=== PATIENT | male | born 1940 | race Caucasian/White ===

== ENCOUNTER 2016-03-16 09:16 | Inpatient (IN) | payer OTHER ==
[~2016-03-16] VITALS: Ht 177.8 cm; Wt 89.0 kg
--- NOTE | ~2016-03-16 | EKG ---
[address] [address] ELECTROCARDIOGRAM REPORT Name: MARIELLA FAY Room #: 212-[facility]#: [id number] Admission: 03/16/16 Attend Phys: Hernan Swanson MD Discharge: Date of : 42 Report #: [id number] THIS REPORT FOR: //name// [facility] Test Date: 2016-03-17 Test Time: 06:46:20 Pat Name: MARIELLA FAY Department: Room: 212 Gender: M Unscrambler: brittany : 1940 Requested By: Angel Pritchett Order Number: [id number] MD: John Louis Measurements Intervals [place] Rate: 76 P: 55 IL: 148 QRS: 72 QRSD: 95 T: 59 QT: 395 QTc: 445 Interpretive Statements Sinus rhythm Low voltage, extremity leads Compared to ECG 03/16/2016 12:58:11 No significant changes Electronically Signed On 03-17-2016 8:29:40 ORDERING BOX OPERATOR by John Louis [email or web address] <ELECTRONICALLY SIGNED> By: John Louis MD 03/17/16 0829 5 5 MD ROHAN Ortiz
--- NOTE | ~2016-03-16 | 2DMMODE ---
[facility] [place] [place] [address] 2 D/M-MODE ECHOCARDIOGRAM Name: NYAMARIELLA C Room #: 212-[facility] .R.#: [id number] Admission: 03/17/16 Attend Phys: Jarad Franco Discharge: Date of : 42 Date of Service: 03/17/16 1225 Report #: [id number] THIS REPORT FOR: //name// Transthoracic Echocardiography Ordering physician: Angel Pritchett M.D., F.A.C.C. Referring physician: Angel Pritchett M.D., F.A.C.C. Efficiency Miner Blasting: Lisa Giraldo Indications/History: Aortic stenosis. Hx: COPD BP: 107 / HR: 68bpm Height: 70in Weight: 196.6lb 72 Study data: M-mode, complete 2D, complete spectral Doppler, and color Doppler. Location: Echo laboratory. Routine. Image quality was adequate. 2D measurements Normal Normal LVID ED 42.3mm 36-57 IVS ED 9.5mm 6-11 LVID ES 30.5mm 23-40 LVPW ED 9.6mm 6-11 LA volume index 17ml/m2 16-28 AoRoot diam ED 37mm 21-37 LVOT diameter 21mm 18-23 Findings: Left ventricle: The cavity size was normal. Wall thickness was normal. Systolic function was normal. The estimated ejection fraction was in the range of 50% to 55%. Wall motion was normal. Right ventricle: The cavity size was normal. Systolic function was normal. Right atrium: The atrium was normal in size. Left atrium: The atrium was normal in size. Volume index: 17ml/m2 (S). Aortic valve: Mildly thickened leaflets. Doppler: There was no stenosis. No regurgitation. Peak velocity: 151.7cm/s (S). Mitral valve: Structurally normal valve. Doppler: [facility] [address] [place] [address] 2 D/M-MODE ECHOCARDIOGRAM Name: MARIELLA FAY Room #: 212-P [facility] M.R.#: [id number] Admission: 03/17/16 Attend Phys: Jarad Noah Franco Discharge: Date of : 42 Date of Service: 03/17/16 1225 Report #: [id number] There was no evidence for stenosis. No regurgitation. Peak E-wave velocity: 71cm/s. Peak gradient: 2mm Hg (D). Peak A-wave velocity: 81.7cm/s. Tricuspid valve: Structurally normal valve. Doppler: There was no evidence for stenosis. Mild regurgitation. Regurgitant peak velocity: 275.9cm/s. Peak RV-RA gradient: 30mm Hg (S). Pulmonic valve: Structurally normal valve. Doppler: There was no evidence for stenosis. Trivial regurgitation. Pericardium: There was no pericardial effusion. Aorta: Aortic root: The aortic root was normal in size. Pulmonary artery: Systolic pressure was estimated to be 35mm Hg. Diastolic function: Doppler parameters are consistent with abnormal left ventricular relaxation (grade 1 diastolic dysfunction). Systemic veins: Inferior vena cava: The vessel was normal in size; the respirophasic diameter changes were in the normal range (= 50%). Conclusions 1. Left ventricle: Systolic function was normal. The estimated ejection fraction was in the range of 50% to 55%. Wall motion was normal. Doppler parameters are consistent with abnormal left ventricular relaxation (grade 1 diastolic dysfunction). 2. Aortic valve: Mildly thickened leaflets. There was no stenosis. No regurgitation. 3. Mitral valve: Structurally normal valve. No regurgitation. 4. Pericardium, extracardiac: There was no pericardial effusion. 5. Pulmonary arteries: Systolic pressure was estimated to be 35mm Hg. <ELECTRONICALLY SIGNED> By: Angel Pritchett MD, [facility] 03/17/16 1317 1225 16 Angel Pritchett MD, [facility] /svetlana
--- NOTE | ~2016-03-16 | EKG ---
[address] [address] ELECTROCARDIOGRAM REPORT Name: MARIELLA FAY Room #: 212-[facility]#: [id number] Admission: 03/16/16 Attend Phys: Hernan Swanson MD Discharge: Date of : 42 Report #: [id number] THIS REPORT FOR: //name// [facility] Test Date: 2016-03-16 Test Time: 12:58:11 Pat Name: MARIELLA FAY Department: Room: 212 Gender: M Director Of Strategy & Mobile: brittany : 1940 Requested By: Brenda Llanos Order Number: [id number] MD: John Louis Measurements Intervals [place] Rate: 87 P: 70 MD: 146 QRS: 63 QRSD: 90 T: 55 QT: 358 QTc: 431 Interpretive Statements Sinus rhythm Borderline low voltage, extremity leads No previous ECG available for comparison Electronically Signed On 03-16-2016 15:50:17 SURVEYOR GEODETIC by John Louis [email or web address] <ELECTRONICALLY SIGNED> By: John Louis MD 03/16/16 1550 1258 1258 John Louis MD /MARISEL
--- NOTE | ~2016-03-16 | HC ---
[facility] [place] [place] [address] CONSULTATION Name: MARIELLA FAY Room #: 212-P [facility] IN ..#: [id number] Admission: 03/17/16 Attend Phys: Jarad Villa Discharge: 03/18/16 Date of : 42 Report #: [id number] THIS REPORT FOR: //name// CC: FAM unknown Hernanbrittnee Swanson REASON FOR CONSULTATION: Chest pain, myocardial infarction. HISTORY OF PRESENT ILLNESS: The patient is a 75-year-old gentleman with significant chronic obstructive pulmonary disease. History is otherwise fairly limited. Yesterday, he reports development of midsternal chest tightness. This was a pressure-like feeling radiating up into his neck and between his shoulder blades. He went to a clinic in [place], who intermediately called 911 and transported him to [facility]. There he was admitted overnight and troponin levels were mildly elevated at 0.96. He does have a history of remote angiography about 5 years ago at which time mild plaquing was identified. He has never had pain similar to this. He denies heart failure symptoms including orthopnea, paroxysmal nocturnal dyspnea, or lower extremity edema. No history of near syncope or syncope. ALLERGIES: He is allergic to KEFLEX. MEDICATIONS: Include theophylline 300 mg twice daily, albuterol, Crestor 10 mg daily, ProAir, Singulair. PAST MEDICAL HISTORY: Medical records have been reviewed and include a history of COPD, pneumonia, bilateral cataract excision, skin cancer excision. SOCIAL HISTORY: He smoked 2 packages a day for many years, but quit over 30 years ago. FAMILY HISTORY: Unremarkable for premature coronary disease. REVIEW OF SYSTEMS: All systems negative except as that noted above. PHYSICAL EXAMINATION: GENERAL: A pleasant gentleman who is in no distress. VITAL SIGNS: Blood pressure is 140/90, heart rate of 84 and regular. He is afebrile. HEENT: There are neither xanthelasma, subcutaneous xanthomata, oral mucosal or digital cyanosis or kyphoscoliosis present. CHEST: Reveals a few bibasilar crackles. CARDIOVASCULAR: Regular rate and rhythm with a normal S1, S2. No murmurs, gallops or rubs. ABDOMEN: Soft and nontender. EXTREMITIES: Without cyanosis, clubbing or edema. Radial pulses are 2+. NEUROLOGIC: He is alert with a nonfocal exam. [facility] [address] [place] [address] CONSULTATION Name: MARIELLA FAY Reinaldo Room #: 212-[facility] IN ..#: [id number] Admission: 03/17/16 Attend Phys: Fammarleen Noah Joaneb Discharge: 03/18/16 Date of : 42 Report #: [id number] LABORATORY DATA: Glucose 96, creatinine 1.4. Sodium 143, potassium 4.4, troponin 4.1, WBC 7.6, hemoglobin 15, hematocrit 46, platelet count 206. EKG, sinus rhythm, normal tracing. IMPRESSION: 1. Non-Q wave myocardial infarction. 2. Chronic obstructive pulmonary disease. 3. Chronic kidney disease. 4. Dyslipidemia. 5. Hypertension. RECOMMENDATIONS: 1. Continue therapy with heparin, nitrates, addition of beta blockade. 2. Coronary angiography. I have outlined the angiographic procedure in detail including its associated risks. At this point, I am going to withhold JANENE inhibitor therapy given his mild renal insufficiency in anticipation of a contrast load. After a thorough discussion of the angiographic procedure, its risks, and alternatives and after having answered his questions in detail, he is agreeable to proceeding. Further thoughts will be forthcoming based on this angiographic procedure. Thank you for asking me to participate in his care. <ELECTRONICALLY SIGNED> By: Angel Pritchett MD, [facility] 03/20/16 0825 1613 0153 Angel Pritchett MD, FACC /nt
--- NOTE | ~2016-03-16 | CATHLAB ---
[address] [place] [address] INVASIVE PROCEDURE REPORT Name: MARIELLA FAY Room #: 212-P [facility]#: [id number] Admission: 03/17/16 Attend Phys: Jarad Franco Discharge: 03/18/16 Date of : 42 Date of Service: 03/17/16 0859 Report #: [id number] THIS REPORT FOR: //name// CC: EDUARDO Swanson INDICATIONS: Non-Q-wave myocardial infarction. PROCEDURE IN DETAIL: The potential benefits and risks of the procedure were discussed at length with the patient who understood. Full written and informed consent was obtained. The patient was brought into the catheterization suite where his right groin was prepped and draped in a sterile fashion. He was sedated with intravenous Versed. 1% Xylocaine was used as local anesthetic. A 6-Somali sheath was placed in the right femoral artery by the modified Seldinger technique. Left heart catheterization was performed with a 6-Somali angled pigtail catheter. A single plain ventriculogram was performed in the SIDHU view. Pullback gradients were measured across the aortic valve. Selective coronary angiography was performed with a 6-Somali left and right 4 cm Krishna coronary catheter. All diagnostic catheters were removed. Hand injection was performed through the right groin sheath with placement of the Mynx device upon removal of the sheath. The patient remained in excellent condition at the conclusion of the procedure with good right groin hemostasis and intact distal pulses. RESULTS: LEFT HEART HEMODYNAMICS: 1. Left ventricular systolic pressure of 110. 2. Left ventricular end diastolic pressure of 14. 3. Aortic valve appeared to be 15-20 mm pullback gradient across the aortic valve. Central aortic pressure of 90/60. ANGIOGRAPHY: LEFT VENTRICULOGRAM: Ventriculography demonstrated normal global and regional left ventricular systolic function, mitral regurgitation was absent. Ejection fraction was estimated at 65%. SELECTIVE CORONARY ANGIOGRAPHY: 1. LEFT MAIN: Left main was normal. 2. LEFT ANTERIOR DESCENDING: Left anterior descending was moderately calcified proximally. There was smooth 40% to at most 50% proximal LAD plaque. There was a single moderate size anterolateral branch, which exhibited mild plaquing. 3. The circumflex was moderate in size and nondominant. Proximal circumflex exhibited a 40-50% stenosis. The circumflex then gave rise to a single marginal branch, which exhibited mild plaquing. 4. THE RIGHT CORONARY: The right coronary was dominant and quite large. There was scattered 20-30% proximal plaquing. The distal right coronary exhibited 20-30% plaquing, posterior descending and a large posterolateral branch exhibited mild plaquing. [address] [place] [address] INVASIVE PROCEDURE REPORT Name: MARIELLA FAY Room #: 212-P [facility] IN ..#: [id number] Admission: 03/17/16 Attend Phys: Jarad Franco Discharge: 03/18/16 Date of : 42 Date of Service: 03/17/16 0859 Report #: [id number] SUMMARY: 1. Normal global and regional left ventricular systolic function, mild to moderate aortic stenosis with suggestive correlation with echocardiography is recommended. 2. Normal left main. 3. Mild to moderate nonocclusive coronary artery disease. Based on this angiographic study, continued pharmacologic therapy and aggressive risk factor modification is recommended. <ELECTRONICALLY SIGNED> By: Angel Pritchett MD, [facility] 03/23/16 0858 0859 0935 Angel Pritchett MD, FAC /nt
--- NOTE | ~2016-03-16 | EKG ---
[address] [address] ELECTROCARDIOGRAM REPORT Name: MARIELLA FAY Room #: 212-[facility]#: [id number] Admission: 03/16/16 Attend Phys: Hernan Swanson MD Discharge: Date of : 42 Report #: [id number] THIS REPORT FOR: //name// [facility] Test Date: 2016-03-16 Test Time: 16:55:05 Pat Name: MARIELLA FAY Department: Room: 212 Gender: M Prototype Carpenter: Sharon WARD : 1940 Requested By: Angel Pritchett Order Number: [id number] MD: John Louis Measurements Intervals [place] Rate: 84 P: 54 VT: 148 QRS: 64 QRSD: 97 T: 52 QT: 386 QTc: 457 Interpretive Statements Sinus rhythm Borderline low voltage, extremity leads Compared to ECG 03/16/2016 12:58:11 No significant changes Electronically Signed On 03-17-2016 8:26:16 ART HISTORY INSTRUCTOR by John Louis [email or web address] <ELECTRONICALLY SIGNED> By: John Louis MD 03/17/16 0826 1655 165 John Louis MD /MARISEL
[2016-03-16 11:19] VITALS: BP 147/100
[2016-03-16] MEDS ORDERED: THEO-24300 MG PO (11:27)
[2016-03-16] MEDS ORDERED: PROAIR HFA8.5 GM INH (11:30)
[2016-03-16] MEDS ORDERED: PAXIL10 MG PO (11:33)
[2016-03-16] MEDS ORDERED: CRESTOR10 MG PO (11:33)
[2016-03-16 14:30] VITALS: BP 144/92
[2016-03-16 16:55] VITALS: BP 143/109
[2016-03-16 17:03] LABS: CHOLESTEROL 209 mg/dL (<200); HDL CHOLESTEROL 113 mg/dL (>40); LDL CHOLESTEROL 63 mg/dL (<100); TC:HDL 1.8 Ratio (Not establshd); TRIGLYCERIDE 169 mg/dL (<150); VLDL 34 mg/dL (<40)
[2016-03-16 17:04] LABS: SERUM ASSESSMENT Clear
[2016-03-16 19:42] VITALS: BP 100/60
[2016-03-17] VITALS (8 sets, daily range): BP systolic 82–124; BP diastolic 53–91
[2016-03-17 03:58] LABS: ABSOLUTE NEUTROPHILS 3.6 thou/uL (1.4-8.2); BASOPHILS 0.9 % (0.0-2.0); EOSINOPHILS 6.4 % (0.0-3.0); HEMATOCRIT 41.3 % (42.0-52.0); HEMOGLOBIN 14.1 gm/dL (14.0-18.0); LYMPHOCYTES 28.4 % (24.0-44.0); MCH 33.3 pg (26.0-34.0); MONOCYTES 10.8 % (1.0-8.0); PLATELET COUNT 202 thou/uL (150-400); POLYS 53.5 % (36.0-66.0); RBC 4.22 mil/uL (4.50-6.00); RDW 13.9 % (10.5-14.5); WBC 6.8 thou/uL (4.0-11.0)
[2016-03-17 04:16] LABS: MANUAL DIFF NO
[2016-03-17 04:24] LABS: ALBUMIN 2.8 g/dL (3.4-5.0); CALCIUM 8.4 mg/dL (8.5-10.1); CREATININE 1.3 mg/dL (0.6-1.3); MAGNESIUM 1.9 mg/dL (1.8-2.4); TOTAL BILIRUBIN 0.8 mg/dL (<0.1-1.0); TOTAL PROTEIN 5.3 g/dL (6.4-8.2)
[2016-03-18 00:35] VITALS: BP 146/81
[2016-03-18 05:40] VITALS: BP 128/83
[2016-03-18 05:41] LABS: CALCIUM 8.8 mg/dL (8.5-10.1); CREATININE 1.2 mg/dL (0.6-1.3); PHOSPHORUS 2.3 mg/dL (2.5-4.9); POTASSIUM 4.2 mmol/L (3.5-5.1)
[2016-03-18 08:05] VITALS: BP 134/83
[2016-03-18] MEDS ORDERED: METOPROLOL SUCC25 M1 PO (10:33)
[2016-03-18] MEDS ORDERED: ASPIR 8181 MG PO (10:33)
[2016-03-18 11:16] VITALS: BP 134/83
== END 2016-03-18 11:55 | disposition home or self-care (01) | DRG 281 ==
LOC: 2N 09:16
PROVIDERS: Hospitalist; Internal Medicine; Nurse Practitioner
PROC: B2151ZZ Fluoroscopy of Left Heart using Low Osmolar Contrast (ICD-10-PCS; principal; 2016-03-17)
PROC: 4A023N7 Measurement of Cardiac Sampling and Pressure, Left Heart, Percutaneous Approach (ICD-10-PCS; principal; 2016-03-17)
PROC: B2111ZZ Fluoroscopy of Multiple Coronary Arteries using Low Osmolar Contrast (ICD-10-PCS; principal; 2016-03-17)
DX: I21.4 Non-ST elevation (NSTEMI) myocardial infarction (principal); N17.9 Acute kidney failure, unspecified; E44.0 Moderate protein-calorie malnutrition; J44.9 Chronic obstructive pulmonary disease, unspecified; N18.9 Chronic kidney disease, unspecified; I25.10 Atherosclerotic heart disease of native coronary artery without angina pectoris; R00.0 Tachycardia, unspecified; I12.9 Hypertensive chronic kidney disease with stage 1 through stage 4 chronic kidney disease, or unspecified chronic kidney disease; E78.5 Hyperlipidemia, unspecified; Z98.42 Cataract extraction status, left eye; Z98.41 Cataract extraction status, right eye; Z87.01 Personal history of pneumonia (recurrent); Z87.891 Personal history of nicotine dependence; Z82.49 Family history of ischemic heart disease and other diseases of the circulatory system; Z88.1 Allergy status to other antibiotic agents; Z79.82 Long term (current) use of aspirin; Z79.899 Other long term (current) drug therapy
CPT/HCPCS: 10081